=== PATIENT | male | born 1950 | race African-American/Black ===

== ENCOUNTER 2019-08-13 17:47 | Observation (INO) | payer OTHER ==
[~2019-08-13] VITALS: Ht 172.7 cm; Wt 122.2 kg
[2019-08-13 19:00] LABS: BASOPHILS ABSOLUTE AUTO 0.03 K/mm3 (0.00-0.23); BASOPHILS PERCENT AUTO 1 % (0-2); EOSINOPHILS ABSOLUTE AUTO 0.32 K/mm3 (0.00-0.68); EOSINOPHILS PERCENT AUTO 5 % (0-6); Hematocrit 47.2 % (37.0-53.0); Hemoglobin 15.2 g/dL (13.5-17.5); IMMATURE GRAN ABSOLUTE AUTO 0.01 K/mm3 (0.00-0.10); IMMATURE GRAN PERCENT AUTO 0 % (0-1); LYMPHOCYTES ABSOLUTE AUTO 1.82 K/mm3 (0.84-5.20); LYMPHOCYTES PERCENT AUTO 31 % (21-46); MONOCYTES ABSOLUTE AUTO 0.66 K/mm3 (0.16-1.47); MONOCYTES PERCENT AUTO 11 % (4-13); Mean Corpuscular HGB 30.9 pg (26.0-34.0); Mean Corpuscular HGB Conc 32.2 g/dL (31.5-36.5); Mean Corpuscular Volume 96 fL (80-100); Mean Platelet Volume 11.2 fL (9.1-12.4); NEUTROPHILS ABSOLUTE AUTO 3.12 K/mm3 (1.96-9.15); NEUTROPHILS PERCENT AUTO 52 % (41-73); Platelet Count 227 K/mm3 (150-400); RDW Coefficient Variation 13.3 % (11.7-14.2); RDW Standard Deviation 47.7 fL (35.1-46.3); Red Blood Cell Count 4.92 M/mm3 (4.30-5.90); White Blood Cell Count 5.96 K/mm3 (4.00-11.30)
[2019-08-13] MEDS ORDERED: ZESTORETIC 20-251 EA PO (19:04)
[2019-08-13] MEDS ORDERED: RESTORE PLUS1 EACH BOTHEYES (19:04)
[2019-08-13] MEDS ORDERED: METF500C PO (19:05)
[2019-08-13] MEDS ORDERED: ATEN50 PO (19:05)
[2019-08-13] MEDS ORDERED: Vitamin D2000 UNIT PO (19:05)
[2019-08-13] MEDS ORDERED: ZYRTEC10 M2 PO (19:06)
[2019-08-13] MEDS ORDERED: Aspir 8181 MG PO (19:06)
[2019-08-13] MEDS ORDERED: ACET325 PO (19:06)
[2019-08-13] MEDS ORDERED: IBUP400 PO (19:06)
[2019-08-13] MEDS ORDERED: Zantac150 MG PO (19:07)
[2019-08-13] MEDS ORDERED: Clotrimazole15 GM TOP (19:07)
[2019-08-13 19:19] LABS: Albumin, Blood 3.7 g/dL (3.4-5.0); Albumin/Globulin Ratio 0.9 (0.8-1.8); Bilirubin, Total 0.4 mg/dL (0.1-1.0); Bun/Creatinine Ratio 9.3 (12.0-20.0); Calcium, Blood 9.3 mg/dL (8.5-10.1); Creatinine, Blood 1.4 mg/dL (0.60-1.20); Globulin, Blood 4.1 g/dL (2.2-4.0); Total Protein, Blood 7.8 g/dL (6.4-8.2)
[2019-08-13 20:30] LABS: Source, Urine Clean Catch
[2019-08-13 20:33] LABS: Bilirubin, Urine Neg (Neg); Blood, Urine 1+ (Neg); Glucose Qualitative, Urine Neg (Neg); Ketones, Urine Neg (Neg); Leukocyte Esterase, Urine Neg (Neg); Nitrite, Urine Neg (Neg); Protein, Urine 3+ (Neg); Urobilinogen, Urine NORM (Normal)
[2019-08-13 20:40] LABS: Appearance, Urine Clear (Clear); Color, Urine Yellow (P-Yellow)
[2019-08-13 20:41] LABS: Bacteria Not Seen /hpf; Red Blood Cells, Urine Rare /hpf (0-2); Squamous Epithelial Cells Not Seen /hpf (Few); White Blood Cells, Urine Not Seen /hpf (0-5)
[2019-08-13] MEDS ORDERED: FEROSUL325 M1 PO (23:12)
[2019-08-13] MEDS ORDERED: ATOR40TA PO (23:12)
[2019-08-13] MEDS ORDERED: OMEP20ER PO (23:14)
[2019-08-13] MEDS ORDERED: PIOG30 PO (23:14)
--- NOTE | 2019-08-14 01:12 | NUR ---
JUAN CARLOS IS BEING ADMITTED TO THE FLOOR FOR TIA. HE ARRIVED VIA GURNEY, TRANSFERRED SELF INDEPENDENT TO BED. HE DID NOT WANT US TO WEIGH HIM BUT STATED HIS WEIGHT. HE REPORTS HE CAME FROM [place] TO [employer] A WHEELCHAIR FOR HIS MOTHER. HE STARTED TO HAVE NUMBNESS AND TINGLING, SLURRED SPEECH. SO BROUGHT HIM TO THE ER. ON ARRIVAL TO THE HOSPITAL ALL SYMPTOMS WERE RESOLVED. PATIENT AOX3, COOPERATIVE. PUPILS ARE REACTIVE, NEURO CHECKS WNL. NO DEFICITS. LUNG SOUNDS ARE CLEAR THROUGOUT, NO COUGH OR CONGESTION. HR ON TELE SHOWS SINUS CHRISTINE WITH OCCATIONAL PAC'S. SKIN WNL. ADMISSION COMPLETED. GAVE HIM SNACKS AND DRINKS. CALL LIGHT IN REACH.
--- NOTE | 2019-08-14 04:00 | NUR ---
PATIENT WAS PLACED ON CPAP PER HIS REQUEST. WEARS ONE AT HOME. TELE STICKERS REPLACED. LAYING DOWN TO SLEEP NOW.
--- NOTE | 2019-08-14 06:15 | NUR ---
SHIFT SUMMARY: JUAN CARLOS WAS ADMITTED LAST NIGHT FOR TIA. HE IS AOX3 INDEPENDENT IN THE ROOM. NEURO CHECKS ARE NEGATIVE, NO DEFICITS. BP IS ELEVATED INTO THE 180'S-190'S. IS AWARE. PLAVIX AND LIPITOR GIVEN. FINISHED 1 LITER OF NS. GOOD APPETITE. CHRONIC PAIN AVERAGE 4-5. SLEPT WITH USE OF CPAP OFF AND ON. TELE SHOWED SINUS CHRISTINE WITH PAC'S. NO SIGNS OF STROKE OR TIA SINCE ARRIVAL TO THE FLOOR. WILL REPORT TO DAY SHIFT. CALL LIGHT IN REACH.
[2019-08-14 07:06] LABS: Hematocrit 44.5 % (37.0-53.0); Hemoglobin 14.3 g/dL (13.5-17.5); Mean Corpuscular HGB 30.5 pg (26.0-34.0); Mean Corpuscular HGB Conc 32.1 g/dL (31.5-36.5); Mean Corpuscular Volume 95 fL (80-100); Mean Platelet Volume 11.2 fL (9.1-12.4); Platelet Count 200 K/mm3 (150-400); RDW Coefficient Variation 13.3 % (11.7-14.2); RDW Standard Deviation 46.5 fL (35.1-46.3); Red Blood Cell Count 4.69 M/mm3 (4.30-5.90); White Blood Cell Count 5.91 K/mm3 (4.00-11.30)
[2019-08-14 07:24] LABS: Albumin, Blood 3.3 g/dL (3.4-5.0); Albumin/Globulin Ratio 0.9 (0.8-1.8); Bilirubin, Total 0.4 mg/dL (0.1-1.0); Bun/Creatinine Ratio 12.1 (12.0-20.0); Creatinine, Blood 1.41 mg/dL (0.60-1.20); Globulin, Blood 3.6 g/dL (2.2-4.0); Potassium, Blood 3.7 mmol/L (3.5-5.5); Total Protein, Blood 6.9 g/dL (6.4-8.2)
--- NOTE | 2019-08-14 14:33 | NUR ---
Echocardiogram using 9.0ml of agitated saline contrast performed.
[2019-08-14] MEDS ORDERED: CLOP75 PO (15:10)
--- NOTE | 2019-08-14 15:34 | NUR ---
DR. LOMELI NOTIFIED OF BLOOD PRESSURE. WILL ADD ANOTHER MED IN MED REC
[2019-08-14] MEDS ORDERED: AMLO5 PO (15:43)
--- NOTE | 2019-08-14 16:01 | NUR ---
REVIEW D'C. AWARE NEEDS TO MAKE F/U APPT W/V.AElizabeth [place]. AWARE 3 NEW MEDS TO COUNTY SURVEYOR LEBrice Jose JuanJOSÉ. DR. LOMELI AWARE OF BLD PRESSURE. AWARE TO MONITOR B.P. DAILY. ANSWER ALL QUESTIONS. IN W/C TO POV W/ DRIVING.
== END 2019-08-14 16:05 | disposition home or self-care (01) ==
LOC: ER 17:47 → MEDS 17:48 → ENPENDDIS 08-14 13:28 → MEDS 08-14 16:05
PROVIDERS: Physician Assistant; ADMIT Internal Medicine
DX: G45.9 Transient cerebral ischemic attack, unspecified (principal); R32 Unspecified urinary incontinence; E11.9 Type 2 diabetes mellitus without complications; I10 Essential (primary) hypertension; E78.00 Pure hypercholesterolemia, unspecified; J44.9 Chronic obstructive pulmonary disease, unspecified; M25.551 Pain in right hip; M25.552 Pain in left hip; G89.29 Other chronic pain; K21.9 Gastro-esophageal reflux disease without esophagitis; G93.40 Encephalopathy, unspecified; E66.9 Obesity, unspecified; N28.9 Disorder of kidney and ureter, unspecified; M25.511 Pain in right shoulder; M25.512 Pain in left shoulder; D50.9 Iron deficiency anemia, unspecified; Z79.82 Long term (current) use of aspirin; Z79.899 Other long term (current) drug therapy; Z88.5 Allergy status to narcotic agent; Z88.8 Allergy status to other drugs, medicaments and biological substances
CPT/HCPCS: 36415; 70450; 70496; 70498; 80053; 81001; 82947; 85025; 85027; 93005; 93010; 93306; 93880; 94660; 96360-59; 96361; 96372; 99285-25; A9270-GY; G0378; J1650; J7030; Q9967